=== PATIENT | male | born 2000 | race Caucasian/White ===

== ENCOUNTER 2022-02-15 09:44 | Observation (INO) | payer OTHER, SELFPAY ==
[2022-02-15] VITALS (9 sets, daily range): BP systolic 120–131; BP diastolic 53–77; PULSE 57–78; RESP 16–20; TEMP 36.3–36.7; O2SAT 98–100; BMI 19.8
--- NOTE | ~2022-02-15 | CT_ITS ---
EXAMINATION: CT abdomen pelvis w con DATE: 02/15/2022 10:50 INDICATION: Lower abdominal pain, vomiting TECHNIQUE: Computed tomography (CT) of the abdomen and pelvis was performed with 100 CC Omnipaque 300 intravenous contrast. Automated exposure control and iterative reconstruction technique were employe d. Exam dose: 193.25 mGy-cm total exam DLP. COMPARISON: None. FINDINGS: The lung bases are clear. Normal heart size. No pericardial or pleural effusion. The liver, gallbladder, bile ducts, spleen, pancreas, pancreatic duct, and adrenal glands and kidneys are unremarkable. Normal caliber of the abdominal aorta. No intraperitoneal or retroperitoneal or pelvic mass lesion or adenopathy. There is a small amount of free fluid in the dependent pelvis. The appendix appears normal. There is distention up to 2.9 cm diameter of distal ileum with fecal-like content within the lumen, w ith normal caliber of the terminal ileum. The findings suggest chronic mild distal ileal partial smal l bowel obstruction. No bowel obstruction or intraperitoneal free air is noted otherwise. The urinary bladder is relativel y evacuated, essentially unremarkable. Normal prostate gland. Included skeletal structures are unremarkable. IMPRESSION: Nonspecific small amount of fluid in the dependent pelvis Normal appendix Distention of distal ileum with fecal-like content, suggesting chronic partial distal ileal obstructi on. The terminal ileum is of normal caliber. Consider small bowel series. Reviewed, dictated and finalized at [facility]. Reviewed, dictated and finalized at [facility]. IMPRESSION: Nonspecific small amount of fluid in the dependent pelvis Normal appendix Distention of distal ileum with fecal-like content, suggesting chronic partial distal ileal obstruction. The terminal ileum is of normal caliber. Consider sma ll bowel series.
--- NOTE | 2022-02-15 10:00 | ED.GENADULT ---
HPI - General Adult General Chief complaint: Abdominal Pain Stated complaint: entire stomach hurts - top to bottom Time Seen by Provider: 02/15/22 09:54 History of Present Illness HPI narrative: Patient is a 21-year-old male here for evaluation of lower abdominal pain. Patient states the pain is severe and woke him up from his sleep this morning about 5 hours ago. Since then, the pain has been intermittent, provoked by position changes. The pain remains in his lower abdomen and does not radiate. He does note that he had 1 episode of vomiting nonbloody and nonbilious emesis, and that he currently feels nauseous. His last bowel movement was last night and was normal for him. He did attempt two laxatives for the pain without relief or without having a bowel movement. Denies fevers, chills, chest pain, back pain, dysuria, hematuria, sick contacts, new foods. Patient did have surgery on a hernia when he was a child. Related Data Home Medications Medication Instructions Recorded Confirmed No Home Medications 02/15/22 02/15/22 Allergies Allergy/AdvReac Type Severity Reaction Status Date / Time No Known Allergies Allergy Verified 02/15/22 18:14 Review of Systems Review of Systems: Gen.: Denies fevers or chills Eyes: Denies eye pain or visual change ENT: Denies congestion Respiratory: Denies shortness of breath or cough CV: Denies chest pain or palpitations GI: Reports abdominal pain, nausea, vomiting. Denies diarrhea denies burning, urgency, frequency or hematuria Musculoskeletal: Denies back pain or muscle pain Neuro: Denies numbness, tingling, weakness or focal weakness Skin: Denies rash Except as documented, all other systems reviewed and negative COUNT INCLUDES THE [facility] Past Medical History Medical History (Updated 02/15/22 @ 18:15 by Cristina Sanchez PA-C) No pertinent past medical history Surgical History Surgical History (Updated 02/15/22 @ 18:12 by Claire Rasheed APRN) History of hernia repair Social History Social History (Updated 02/15/22 @ 18:13 by Claire Rasheed APRN) Smoking status: Never smoker Alcohol intake: never Substance use: current Substance use type: marijuana Last use: 02/14/22 Spiritual care concerns: No Course Vital Signs Vital signs: Vital Signs Blood Pressure 128/75 02/15/22 09:50 Pulse Oximetry 100 02/15/22 09:50 Temperature 97.9 F 02/15/22 10:00 Pulse Rate 60 02/15/22 17:42 Respiratory Rate 16 02/15/22 17:42 Blood Pressure 120/70 02/15/22 17:42 Pulse Oximetry 98 02/15/22 17:42 Oxygen Delivery Room Air 02/15/22 10:00 Medical Decision Making MDM Narrative Medical decision making narrative: 21-year-old male here for evaluation of nausea vomiting and lower abdominal pain today. Patient is vital signs are normal, he is tender diffusely across the lower abdomen with guarding. Work-up significant for leukocytosis to 15.6, no other significant abnormalities on his labs. CT scan with evidence of a chronic small bowel obstruction in the distal ileum. discussed case with Dr. Riley, warrants admission for colonoscopy tomorrow, keep NPO w/ bowel prep. Patient resting comfortably, aware of the plan. Discussed with hospitalist service, agrees with plan for admission. Vital Signs Vital Signs: Vital Signs Blood Pressure 128/75 02/15/22 09:50 Pulse Oximetry 100 02/15/22 09:50 Temperature 97.9 F 02/15/22 10:00 Pulse Rate 60 02/15/22 17:42 Respiratory Rate 16 02/15/22 17:42 Blood Pressure 120/70 02/15/22 17:42 Pulse Oximetry 98 02/15/22 17:42 Oxygen Delivery Room Air 02/15/22 10:00 Lab Data Result diagrams: 02/15/22 09:54 02/15/22 09:54 Labs: Lab Results 02/15/22 02/15/22 02/15/22 Range/Units 09:54 09:54 11:07 WBC 15.6 H (4.5-10.0) K/mm3 RBC 5.55 (4.6-6.20) M/mm3 Hgb 16.5 (14.0-18.0) g/dL Hct 48.1 (42.0-52.0) % MCV 86.7 (80
[2022-02-15 10:02] LABS: Basophils Absolute Auto 0.1 K/mm3 (0.0-0.1); Basophils Percent Auto 0.3 % (0.2-1.2); Eosinophils Absolute Auto 0.1 K/mm3 (0-0.3); Eosinophils Percent Auto 0.5 % (0-4.4); Hematocrit 48.1 % (42.0-52.0); Hemoglobin 16.5 g/dL (14.0-18.0); Immature Granulocyte Absolute 0.07 K/mm3 (0.00-0.031); Immature Granulocyte Percent A 0.4 % (0-0.5); Lymphocytes Absolute Auto 2.12 K/mm3 (0.9-3.2); Lymphocytes Percent Auto 13.6 % (18.3-44.2); Mean Corpuscular HGB Conc 34.3 g/dl (32-36); Mean Corpuscular Hemoglobin 29.7 pg (26-34); Mean Corpuscular Volume 86.7 fl (80-100); Monocytes Absolute Auto 0.7 K/mm3 (0.1-0.6); Monocytes Percent Auto 4.6 % (2.6-8.5); Neutrophils Absolute Auto 12.5 K/mm3 (1.3-6.7); Neutrophils Percent Auto 80.6 % (45.5-73.1); Platelet Count Result 325 k/mm3 (150-375); Red Blood Count 5.55 M/mm3 (4.6-6.20); Red Cell Distribution Width 12.7 % (11.5-14.5); White Blood Count 15.6 K/mm3 (4.5-10.0)
[2022-02-15] MEDS: FAMOTIDINE 20 MG/2 ML VIAL IV PUSH (10:18)
[2022-02-15] MEDS: ONDANSETRON INJ 4 MG/2 ML VIAL IV PUSH (10:18)
[2022-02-15 10:20] LABS: Alanine Aminotransferase 19 U/L (6-50); Albumin Level 4.9 g/dL (3.7-5.6); Alkaline Phosphatase 80 U/L (58-237); Anion Gap 5 mmol/L (8-16); Aspartate Amino Transferase 23 U/L (17-59); Bilirubin,Total 0.4 mg/dL (0.2-1.3); Blood Urea Nitrogen 9 mg/dL (8-21); Calcium 9.3 mg/dL (8.9-10.7); Carbon Dioxide 30 mmol/L (22-30); Chloride 104 mmol/L (98-107); Estimated CRCL calculation 88 ml/min; Estimated Glomerular Filt Rate > 60; Glucose 127 mg/dL (65-110); Lipase 49 U/L (23-300); Sodium 139 mmol/L (134-143)
[2022-02-15 11:15] LABS: Add Urine Microscopic? NO; Appearance Urine Clear (Clear); Bilirubin Urine Negative (Negative); Blood Urine Negative (Negative); Color Urine Yellow (Yellow); Glucose Urine UA Negative (Negative); Ketones Urine Negative (Negative); Leukocyte Esterase Ur Negative LEU/UL (Negative); Nitrate Urine Negative (Negative); Protein Urine Negative (Negative); Specific Grav Ur >= 1.030 (1.001-1.035); Urobilinogen Urine 0.2 mg/dL (<2.0); pH Urine 5.5 (5.0-9.0)
[2022-02-15 13:20] LABS: Lactic Acid Reflex 1.5 mmol/L (0.7-2.0)
[2022-02-15 14:33] LABS: SARS-CoV-2 RNA PCR Negative
--- NOTE | 2022-02-15 18:05 | ADMGEN ---
This patient, Howard Bailey, was admitted to 3 [facility] Surg Room 301-01. Patient/family oriented to hospital policies and general routines including ID bracelet, bed and alarms, visiting hours, pain management, procedures, bathroom and other care routines, personal items, smoking policy, room service/diet, and visiting hours. Information on how to activate the Rapid Response Team has been discussed. Patient/Family are encouraged to report perceived risks to care and to ask questions if they do not understand what they are told or what they should do.
--- NOTE | 2022-02-15 18:06 | PM.IMHP ---
H&P: HPI History of Present Illness Date/Time: Patient was placed observation status for expected length of stay less than 23 hours for management, will plan to re-evaluate tomorrow for improvement. 02/15/22 18:06 Chief Complaint: Nausea and vomiting Narrative: Mr. Bialey is a 21-year-old gentleman who presented emergency room with complaints of lower abdominal pain and nausea vomiting that started today. Patient states he vomited x1 prior to coming to the hospital. Patient states the a not had a bowel movement yesterday and felt very constipated and took a laxative and had no results. Patient states he had been eating and drinking fine up until today. Patient states that he has occasional constipation, but this number resolved with laxatives. Patient denies having multiple abdominal surgeries. Patient states that he did have a hernia repair when he was an infant. Patient states prior to today he has had occasional episodes of nausea or vomiting, but nothing that made him want to come to the hospital. Patient denies taking any medications at home on a routine basis and denies any significant past medical history. Patient states he does smoke marijuana on a daily basis. Patient denies any black tarry stools, hematochezia, hematemesis, or diarrhea. After seeing the patient in emergency room patient states he did have a bowel movement while emergency room was feeling improved. Patient states he is passing gas without any difficulty. Patient denies any dysuria, hematuria, frequency, or urgency. Review of Systems Review of Systems: A 12 point review of systems was completed patient all pertinent positive and negative per HPI the remainder are unremarkable. [facility] Past Medical History Medical History (Updated 02/15/22 @ 18:15 by Cristina Sanchez PA-C) No pertinent past medical history Surgical History Surgical History (Updated 02/15/22 @ 18:12 by Claire Rasehed APRN) History of hernia repair Social History Social History (Updated 02/15/22 @ 18:13 by Claire Rasheed APRN) Smoking status: Never smoker Alcohol intake: never Substance use: current Substance use type: marijuana Last use: 02/14/22 Spiritual care concerns: No Meds Home Medications and Allergies Home Medications Medication Instructions Recorded Confirmed Type No Home Medications 02/15/22 02/15/22 History Allergies Allergy/AdvReac Type Severity Reaction Status Date / Time No Known Allergies Allergy Verified 02/15/22 18:14 Vital Signs Vital Signs - 24 hr 02/15/22 10:00 02/15/22 11:30 02/15/22 09:50 Temperature 36.6 C Pulse Rate 78 62 Respiratory Rate 16 16 Blood Pressure 124/65 122/70 128/75 Pulse Oximetry 99 100 100 Oxygen Delivery Room Air 02/15/22 10:01 02/15/22 13:00 02/15/22 17:42 Temperature Pulse Rate 60 60 Respiratory Rate 16 16 Blood Pressure 124/65 131/77 120/70 Pulse Oximetry 99 98 98 Oxygen Delivery Exam Narrative: Constitutional: Patient is well-nourished in no acute distress. Patient is alert and oriented x3 HEENT: Moist mucous membranes. No scleral icterus. No lymphadenopathy. Neck: No carotid bruits noted no JVD noted Lungs: Lung sounds are clear to auscultation bilaterally. No accessory muscle use. No rhonchi, rales, or wheezes noted. Cardiovascular: Apical pulse is regular rate and rhythm. S1-S2 noted, no S3 or S4 noted. No gallops, murmurs, or rubs noted. Abdomen: Soft and round. Patient complains of mild tenderness to right lower quadrant with deep palpation. No palpable masses. Extremities: No edema. Nontender. Skin: No rashes or lesions. Warm and dry. Skin is intact. Neurological: No focal neurological deficits. Cranial nerves II-XII grossly intact. Psychiatric: Cooperative, appropriate mood, and affect H&P: Results Labs Labs: Short CBC 02/15/22 Range/Units 09:54 WBC 15.6 H (4.5-10.0) K/mm3 Hgb 16.5 (14.0-18.0) g/d
[2022-02-15] MEDS: BISACODYL 5 MG TABLET EC 20 MG PO (18:37)
[2022-02-15] MEDS: SODIUM CHLORIDE 0.9% IV 1,000 ML 100 ML IV CONT (18:37)
[2022-02-15] MEDS: PEG (High)/E-LYTE SOLN 4,000 ML BTL 4000 ML PO (18:40)
[2022-02-15] MEDS: PROMETHAZINE HCL 25 MG/ML AMPUL 12.5 MG IV PUSH (19:56)
[2022-02-16] VITALS (9 sets, daily range): BP systolic 85–141; BP diastolic 33–68; PULSE 45–98; RESP 14–24; TEMP 36.5–37; O2SAT 99–100
[2022-02-16] MEDS: SODIUM CHLORIDE 0.9% IV 1,000 ML 100 ML IV CONT ×2 (02:48→05:16)
[2022-02-16] MEDS: MAGNESIUM CITRATE 300 ML BTL PO (02:48)
[2022-02-16 06:51] LABS: Basophils Absolute Auto 0.1 K/mm3 (0.0-0.1); Basophils Percent Auto 0.5 % (0.2-1.2); Eosinophils Absolute Auto 0.2 K/mm3 (0-0.3); Eosinophils Percent Auto 1.2 % (0-4.4); Hemoglobin 15.9 g/dL (14.0-18.0); Immature Granulocyte Absolute 0.06 K/mm3 (0.00-0.031); Immature Granulocyte Percent A 0.5 % (0-0.5); Lymphocytes Absolute Auto 3.28 K/mm3 (0.9-3.2); Lymphocytes Percent Auto 25.2 % (18.3-44.2); Mean Corpuscular HGB Conc 34.6 g/dl (32-36); Mean Corpuscular Hemoglobin 30.1 pg (26-34); Mean Platelet Volume 9.6 fl (7.4-10.4); Monocytes Percent Auto 7.6 % (2.6-8.5); Neutrophils Absolute Auto 8.5 K/mm3 (1.3-6.7); Platelet Count Result 312 k/mm3 (150-375); Red Blood Count 5.29 M/mm3 (4.6-6.20); Red Cell Distribution Width 12.6 % (11.5-14.5)
[2022-02-16 06:58] LABS: Anion Gap 7 mmol/L (8-16); Blood Urea Nitrogen 10 mg/dL (8-21); Carbon Dioxide 26 mmol/L (22-30); Chloride 107 mmol/L (98-107); Estimated CRCL calculation 89 ml/min; Estimated Glomerular Filt Rate > 60; Glucose 85 mg/dL (65-110); Potassium 3.6 mmol/L (3.4-5.0); Sodium 140 mmol/L (134-143)
[2022-02-16] MEDS: LACTATED RINGERS 1,000 ML 150 ML IV CONT (09:35)
--- NOTE | 2022-02-16 09:48 | WPDGICN ---
Assessment and Plan Assessment and plan (1) Abdominal pain: Code(s): R10.9 - Unspecified abdominal pain Status: Acute Assessment and Plan: today is resolved but given abnormal finding of ileum in CT scan, I will proceed with colonoscopy today he denies chronic symptos (2) Abnormal computed tomography of cecum and terminal ileum: Code(s): R93.3 - Abnormal findings on diagnostic imaging of other parts of digestive tract Status: Acute Assessment and Plan: assess with colonoscopy (3) Nausea: Code(s): R11.0 - Nausea Status: Acute Assessment and Plan: resolved (4) Leukocytosis: Code(s): D72.829 - Elevated white blood cell count, unspecified Status: Acute GI Consult Note Consult date/time: 02/16/22 09:48 Reason for consult: abdominal pain, abnormal CT scan ileum HPI: Howard Bailey is a 21 year old male with no past medical history who came to the emergency room with new onset of lower abdominal pain and nausea vomiting, had one emesis prior to coming to the hospital.? He normally is regular with bowel movements but day prior did not have one, then took a laxative and had no results.?Patient states he does smoke marijuana on a daily basis. Pain got severe and finally came to ER. CT scan a/p reviewed and showed nonspecific small amount of fluid in the dependent pelvis, Normal appendix, Distention of distal ileum with fecal-like content, suggesting chronic partial distal ileal obstruction.? Review of Systems Review of Systems: Gen.: Denies fevers or chills Eyes: Denies eye pain or visual change ENT: Denies congestion Respiratory: Denies shortness of breath or cough CV: Denies chest pain or palpitations GI: Reports abdominal pain, nausea, vomiting. Denies diarrhea denies burning, urgency, frequency or hematuria Musculoskeletal: Denies back pain or muscle pain Neuro: Denies numbness, tingling, weakness or focal weakness Skin: Denies rash Except as documented, all other systems reviewed and negative [facility] Past Medical History Medical History (Updated 02/16/22 @ 14:29 by Adarsh Trevizo MD) Abnormal computed tomography of cecum and terminal ileum Leukocytosis Nausea No pertinent past medical history Surgical History Surgical History (Updated 02/15/22 @ 18:12 by Claire Rasheed APRN) History of hernia repair Family History Family History (Updated 02/15/22 @ 18:31 by Joan Subramanian RN) Mother Hypertension Social History Social History (Updated 02/15/22 @ 18:13 by Claire Rasheed APRN) Smoking status: Never smoker Second hand tobacco smoke exposure: Yes Alcohol intake: never Substance use: current Substance use type: marijuana Last use: 02/14/22 Gender identity (if verbalized by the patient): Male Spiritual care concerns: No Meds Home Medications and Allergies Home Medications Medication Instructions Recorded Confirmed Type No Home Medications 02/15/22 02/15/22 History Allergies Allergy/AdvReac Type Severity Reaction Status Date / Time No Known Allergies Allergy Verified 02/16/22 09:28 Vital Signs Vital Signs - 24 hr 02/15/22 10:00 02/15/22 11:30 02/15/22 09:50 Temperature 97.9 F Pulse Rate 78 62 Respiratory Rate 16 16 Blood Pressure 124/65 122/70 128/75 Pulse Oximetry 99 100 100 Oxygen Delivery Room Air 02/15/22 10:01 02/15/22 13:00 02/15/22 17:42 Temperature Pulse Rate 60 60 Respiratory Rate 16 16 Blood Pressure 124/65 131/77 120/70 Pulse Oximetry 99 98 98 Oxygen Delivery 02/15/22 18:19 02/15/22 18:00 02/15/22 20:00 Temperature 97.4 F L Pulse Rate 61 Respiratory Rate 16 20 Blood Pressure 122/56 L Pulse Oximetry 98 100 Oxygen Delivery Room Air Room Air 02/15/22 21:42 02/16/22 02:08 02/16/22 05:47 Temperature 98.1 F 97.7 F Pulse Rate 57 L 52 L Respiratory Rate 18 18 Blood Pressure 123/53 L 122/54 L Pulse Oximetry 1
--- NOTE | 2022-02-16 10:00 | WPDANESEPPF ---
Anes - Initial Pre Proc Eval Procedure: Operation Date: 02/16/22 11:00 Proposed Procedures p Colonoscopy - Adarsh Trevizo MD Date/Time: 02/16/22 10:00 Surgeon: Sebastien Marrero MD Pre Op Diagnosis: Chronic SBO Patient Data Age: 21 Gender: M Height: 1.65 m Weight: 54.1 kg Last Vital Signs Temp 98.3 F 02/16/22 09:32 Pulse 98 02/16/22 09:32 Resp 16 02/16/22 09:32 BP 141/68 H 02/16/22 09:32 Pulse Ox 100 02/16/22 09:32 O2 Del Method Room Air 02/16/22 09:32 Allergies Allergy/AdvReac Type Severity Reaction Status Date / Time No Known Allergies Allergy Verified 02/16/22 09:28 Home Medications Medication Instructions Recorded Confirmed Type No Home Medications 02/15/22 02/15/22 History Laboratory Tests 02/15/22 02/15/22 02/15/22 09:54 09:54 11:07 WBC 15.6 K/mm3 H K/mm3 (4.5-10.0) RBC 5.55 M/mm3 M/mm3 (4.6-6.20) Hgb 16.5 g/dL g/dL (14.0-18.0) Hct 48.1 % % (42.0-52.0) MCV 86.7 fl fl (80-100) MCH 29.7 pg pg (26-34) MCHC 34.3 g/dl g/dl (32-36) RDW 12.7 % % (11.5-14.5) Plt Count 325 k/mm3 k/mm3 (150-375) MPV 9.0 fl fl (7.4-10.4) Immature Gran % (Auto) 0.4 % % (0-0.5) Neut % (Auto) 80.6 % H % (45.5-73.1) Lymph % (Auto) 13.6 % L % (18.3-44.2) [place] % (Auto) 4.6 % % (2.6-8.5) Eos % (Auto) 0.5 % % (0-4.4) Baso % (Auto) 0.3 % % (0.2-1.2) Lymph # (Auto) 2.12 K/mm3 K/mm3 (0.9-3.2) [place] # (Auto) 0.7 K/mm3 H K/mm3 (0.1-0.6) Eos # (Auto) 0.1 K/mm3 K/mm3 (0-0.3) Baso # (Auto) 0.1 K/mm3 K/mm3 (0.0-0.1) Abs Immat Gran (auto) 0.07 K/mm3 H K/mm3 (0.00-0.031) Absolute Neuts (auto) 12.5 K/mm3 H K/mm3 (1.3-6.7) Absolute Nucleated RBC 0.0 K/mm3 K/mm3 (0.0-0.012) Nucleated RBC % 0.0 % % (0.0-0.2) Sodium 139 mmol/L mmol/L (134-143) Potassium 4.0 mmol/L mmol/L (3.4-5.0) Chloride 104 mmol/L mmol/L (98-107) Carbon Dioxide 30 mmol/L mmol/L (22-30) Anion Gap 5 mmol/L L mmol/L (8-16) BUN 9 mg/dL mg/dL (8-21) Creatinine 0.90 mg/dL mg/dL (0.7-1.3) Estim Creat Clear Calc 88 ml/min ml/min Estimated GFR > 60 (59 - ) Glucose 127 mg/dL H mg/dL (65-110) Lactic Acid Calcium 9.3 mg/dL mg/dL (8.9-10.7) Magnesium Total Bilirubin 0.4 mg/dL mg/dL (0.2-1.3) AST 23 U/L U/L (17-59) ALT 19 U/L U/L (6-50) Alkaline Phosphatase 80 U/L U/L (58-237) Total Protein 8.0 g/dL g/dL (6.3-8.6) Albumin 4.9 g/dL g/dL (3.7-5.6) Lipase 49 U/L U/L (23-300) Urine Color Yellow (Yellow) Urine Appearance Clear (Clear) Urine pH 5.5 (5.0-9.0) Ur Specific [place] >= 1.030 (1.001-1.035) Urine Protein Negative mg/dL mg/dL (Negative) Urine Glucose (UA) Negative mg/dL mg/dL (Negative) Urine Ketones Negative mg/dL mg/dL (Negative) Ur Blood (Man) Negative (Negative) Urine Nitrate Negative (Negative) Urine Bilirubin Negative (Negative) Urine Urobilinogen 0.2 mg/dL mg/dL (<2.0) Leukocyte Esterase Rfl Negative DAHIANA/UL DAHIANA/UL (Negative) SARS-CoV-2 RNA (RT-PCR) 02/15/22 02/15/22 02/16/22 13:03 13:47 05:43 WBC 13.0 K/mm3 H K/mm3 (4.5-10.0) RBC 5.29 M/mm3 M/mm3 (4.6-6.20) Hgb 15.9 g/dL g/dL (14.0-18.0) Hct 46.0 % % (42.0-52.0) MCV 87.0 fl fl (80-100) MCH 30.1 pg pg (26-34) MCHC 34.6 g/dl g/dl (32-36) RDW 12.6 % % (11.5-14.5) Plt Count 312 k/mm3 k/mm3 (150-375
--- NOTE | 2022-02-16 11:58 | PM.IMPN ---
Progress Note: A&P Assessment and Plan (1) Abdominal pain: Code(s): R10.9 - Unspecified abdominal pain Status: Acute Assessment and Plan: Patient's CT of abdomen and pelvis does show distention of the distal ileum with fecal like content, suggesting chronic partial distal ileal obstruction. The terminal ileum is of normal caliber. Consider small bowel series. Gastroenterology has been consulted and they would like patient to be kept NPO for possible colonoscopy tomorrow. Patient will have colonoscopy prep and kept NPO. Patient is denying any pain at this point time so no further pain medication will be needed. Subjective Date/time seen: 02/16/22 11:58 Interval history: HPI:Mr. Bailey is a 21-year-old gentleman who presented emergency room with complaints of lower abdominal pain and nausea vomiting that started today.? Patient states he vomited x1 prior to coming to the hospital.? Patient states the a not had a bowel movement yesterday and felt very constipated and took a laxative and had no results.? Patient states he had been eating and drinking fine up until today.? Patient states that he has occasional constipation, but this number resolved with laxatives.? Patient denies having multiple abdominal surgeries.? Patient states that he did have a hernia repair when he was an .? Patient states prior to today he has had occasional episodes of nausea or vomiting, but nothing that made him want to come to the hospital.? Patient denies taking any medications at home on a routine basis and denies any significant past medical history.? Patient states he does smoke marijuana on a daily basis.? Patient denies any black tarry stools, hematochezia, hematemesis, or diarrhea.? After seeing the patient in emergency room patient states he did have a bowel movement while emergency room was feeling improved.? Patient states he is passing gas without any difficulty.? Patient denies any dysuria, hematuria, frequency, or urgency. 02/16/2022 Exam Narrative: Constitutional: Patient is well-nourished in no acute distress. Patient is alert and oriented x3 HEENT: Moist mucous membranes. No scleral icterus. No lymphadenopathy. Neck: No carotid bruits noted no JVD noted Lungs: Lung sounds are clear to auscultation bilaterally. No accessory muscle use. No rhonchi, rales, or wheezes noted. Cardiovascular: Apical pulse is regular rate and rhythm. S1-S2 noted, no S3 or S4 noted. No gallops, murmurs, or rubs noted. Abdomen: Soft and round. Patient complains of mild tenderness to right lower quadrant with deep palpation. No palpable masses. Extremities: No edema. Nontender. Skin: No rashes or lesions. Warm and dry. Skin is intact. Neurological: No focal neurological deficits. Cranial nerves II-XII grossly intact. Psychiatric: Cooperative, appropriate mood, and affect Objective Data Vital Signs Vital Signs: Vital Signs - 24 hr 02/15/22 13:00 02/15/22 17:42 02/15/22 18:19 Temperature Pulse Rate 60 60 Respiratory Rate 16 16 16 Blood Pressure 131/77 120/70 Pulse Oximetry 98 98 98 Oxygen Delivery Room Air 02/15/22 18:00 02/15/22 20:00 02/15/22 21:42 Temperature 97.4 F L 98.1 F Pulse Rate 61 57 L Respiratory Rate 20 18 Blood Pressure 122/56 L 123/53 L Pulse Oximetry 100 100 Oxygen Delivery Room Air 02/16/22 02:08 02/16/22 05:47 02/16/22 09:32 Temperature 97.7 F 98.3 F Pulse Rate 52 L 98 Respiratory Rate 18 16 Blood Pressure 122/54 L 141/68 H Pulse Oximetry 99 100 100 Oxygen Delivery Room Air Room Air 02/16/22 10:24 02/16/22 10:34 02/16/22 10:44 Temperature Pulse Rate 63 45 L 52 L Respiratory Rate 24 H 23 H 17 Blood Pressure 85/33 L 85/38 L 99/54 L Pulse Oximetry 99 100 100 Oxygen Delivery Room Air Room Air Room Air 02/16/22 08:00 02/16/22 11:00 Temperature 98.1 F Pulse Rate 51 L Respiratory Rate 20 Blood Pressure 108/47 L Pulse Oximetry 100 100 Oxygen Delivery Room A
--- NOTE | 2022-02-16 12:11 | PM.DS ---
DS: Admitting Diagnosis Discharge Date 02/16/2022 Admitting Diagnosis Abdominal pain DS: Discharge Diagnosis Discharge Diagnosis (1) Abdominal pain: Code(s): R10.9 - Unspecified abdominal pain Status: Acute Assessment and Plan: Patient presented with abdominal pain and episode of vomiting. WBC count was mildly elevated on ED evaluation. CT abdomen and pelvis showed distension off the distal ileum with fecalized content suggesting chronic partial obstruction. He was evaluated by GI and underwent colonoscopy with evaluation of his terminal ileum. There was no abnormality detected on colonoscopy performed on 02/16/2022. He also subsequently had a bowel movement during the hospital stay with resolution of his pain. His symptomatology likely related to constipation. He had mild hypotension due to anesthesia which resolve spontaneously without complication DS: Summary Hospital Course Hospital Course: See above Time Spent with Patient Time attestation: Total time spent providing and/or coordinating discharge services: 35 minutes Exam Narrative: Constitutional: Patient is well-nourished in no acute distress. Patient is alert and oriented x3 HEENT: Moist mucous membranes. No scleral icterus. No lymphadenopathy. Neck: No carotid bruits noted no JVD noted Lungs: Lung sounds are clear to auscultation bilaterally. No accessory muscle use. No rhonchi, rales, or wheezes noted. Cardiovascular: Apical pulse is regular rate and rhythm. S1-S2 noted, no S3 or S4 noted. No gallops, murmurs, or rubs noted. Abdomen: Soft and round. Nontender No palpable masses. Extremities: No edema. Nontender. Skin: No rashes or lesions. Warm and dry. Skin is intact. Neurological: No focal neurological deficits. Cranial nerves II-XII grossly intact. Psychiatric: Cooperative, appropriate mood, and affect DS: Data Data Completed and Pending Labs on day of discharge: Labs from last 24 hours 02/16/22 02/16/22 02/15/22 05:43 05:43 13:47 WBC 13.0 H RBC 5.29 Hgb 15.9 Hct 46.0 MCV 87.0 MCH 30.1 MCHC 34.6 RDW 12.6 Plt Count 312 MPV 9.6 Immature Gran % (Auto) 0.5 Neut % (Auto) 65.0 Lymph % (Auto) 25.2 [place] % (Auto) 7.6 Eos % (Auto) 1.2 Baso % (Auto) 0.5 Lymph # (Auto) 3.28 H [place] # (Auto) 1.0 H Eos # (Auto) 0.2 Baso # (Auto) 0.1 Abs Immat Gran (auto) 0.06 H Absolute Neuts (auto) 8.5 H Absolute Nucleated RBC 0.0 Nucleated RBC % 0.0 Sodium 140 Potassium 3.6 Chloride 107 Carbon Dioxide 26 Anion Gap 7 L BUN 10 Creatinine 0.90 Estim Creat Clear Calc 89 Estimated GFR > 60 Glucose 85 Lactic Acid Calcium 9.0 Magnesium 2.0 SARS-CoV-2 RNA (RT-PCR) Negative 02/15/22 13:03 WBC RBC Hgb Hct MCV MCH MCHC RDW Plt Count MPV Immature Gran % (Auto) Neut % (Auto) Lymph % (Auto) [place] % (Auto) Eos % (Auto) Baso % (Auto) Lymph # (Auto) [place] # (Auto) Eos # (Auto) Baso # (Auto) Abs Immat Gran (auto) Absolute Neuts (auto) Absolute Nucleated RBC Nucleated RBC % Sodium Potassium Chloride Carbon Dioxide Anion Gap BUN Creatinine Estim Creat Clear Calc Estimated GFR Glucose Lactic Acid 1.5 Calcium Magnesium SARS-CoV-2 RNA (RT-PCR) Procedures/Treatments: Colonoscopy done on 02/16/2022 normal up to the depth of insertion. Terminal ileum scope advanced at least 10 cm in colon was examined and was normal no abnormal findings no colitis no stricture no polyps no diverticula. Imaging Radiologist's impression: ITS Impressions Abdomen/Pelvis CT 02/15/22 11:01 IMPRESSION: Nonspecific small amount of fluid in the dependent pelvis Normal appendix Distention of distal ileum with fecal-like content, suggesting chronic partial distal ileal obstruction. The terminal ileum is of normal caliber. Consider small bowel series. Discharge Plan Disch
== END 2022-02-16 13:45 | disposition home or self-care (01) ==
LOC: ANHED 10:14 → ANH3MEDSUR 15:31
PROVIDERS: Internal Medicine Gastroenterology; Nurse Practitioner Adult Health; Physician Assistant; Admitting Provider Student in an Organized Health Care Education/Training Program; Emergency Provider Emergency Medicine; Visit Provider Internal Medicine
PROC: 0DJD8ZZ Inspection of Lower Intestinal Tract, Via Natural or Artificial Opening Endoscopic (ICD-10-PCS; CPT 45378; principal; 2022-02-16 11:00)
DX: R10.9 Unspecified abdominal pain (principal); R11.2 Nausea with vomiting, unspecified; D72.829 Elevated white blood cell count, unspecified; R93.3 Abnormal findings on diagnostic imaging of other parts of digestive tract; Z20.822 Contact with and (suspected) exposure to COVID-19
CPT/HCPCS: 45378; 36415; 74177; 80048; 80053; 81003; 83605; 83690; 83735; 85025; 96360; 96361; 96374; 96375; 99285; A9270; C9803; G0378; J2405; J2550; J2704; J7030; J7120; Q9967; U0003; U0005